=== PATIENT | male | born 1960 | race Caucasian/White ===

== ENCOUNTER 2017-02-06 15:16 | Emergency (ER) | payer BC ==
[2017-02-06] MEDS ORDERED: DUONEB 0.5-3 MG/3 ml Neb IH ONE ×2 (15:25→15:41)
--- NOTE | 2017-02-06 15:38 | ERPHSYRPT ---
- History of Present Illness Time Seen by Provider: 02/06/17 15:33 Source: patient, family Exam Limitations: no limitations Patient Subjective Stated Complaint: PT HERE FOR SOB AFTER PUTTING UP STRAW TODAY,AND DID NOT HAVE INHALER, Triage Nursing Assessment: PT ARRIVED SOB, RESP LABORED, SKIN WARM. SWEATING, Physician History: The patient is a 56-year-old male with family complaining of sudden onset of wheezing and shortness of breath while putting up hay at a farm a few minutes before arrival. The patient has asthma but forgot to bring his inhaler with him. He was very sweaty and had a hard time talking. His past medical history significant for asthma, diabetes, hypertension, and high cholesterol. Timing/Duration: today Activities at Onset: activity Severity of Dyspnea-Max: severe Severity of Dyspnea-Current: severe Possible Cause: frequent episodes Modifying Factors: Improves With: exertion Associated Symptoms: denies symptoms Allergies/Adverse Reactions: No Known Drug Allergies Allergy (Unverified 02/06/17 15:24) Hx Influenza Vaccination/Date Given: No Hx Pneumococcal Vaccination/Date Given: No Immunizations Up to Date: Yes - Review of Systems Constitutional: No Fever, No Chills Eyes: No Symptoms Ears, Nose, & Throat: No Symptoms Respiratory: Dyspnea, Wheezing Cardiac: No Chest Pain, No Edema, No Syncope Abdominal/Gastrointestinal: No Abdominal Pain, No Nausea, No Vomiting, No Diarrhea Genitourinary Symptoms: No Dysuria Musculoskeletal: No Back Pain, No Neck Pain Skin: No Rash Neurological: No Dizziness, No Focal Weakness, No Sensory Changes Psychological: No Symptoms Endocrine: No Symptoms Hematologic/Lymphatic: No Symptoms Immunological/Allergic: No Symptoms All Other Systems: Reviewed and Negative - Past Medical History Pertinent Past Medical History: Yes Cardiac History: High Cholesterol, Hypertension - Past Surgical History Past Surgical History: Yes Gastrointestinal: Cholecystectomy - Social History Smoking Status: Never smoker Exposure to second hand smoke: No Drug Use: none Patient Lives Alone: No - Nursing Vital Signs Nursing Vital Signs: Initial Vital Signs Pulse Rate 86 02/06/17 15:25 Respiratory Rate 30 H 02/06/17 15:25 Blood Pressure 163/107 02/06/17 15:25 O2 Sat by Pulse Oximetry 91 L 02/06/17 15:25 Pain Scale Pain Intensity 0 - Physical Exam General Appearance: moderate distress Eye Exam: PERRL/EOMI Neck Exam: normal inspection, supple Respiratory Exam: diminished breath sounds, wheezing Cardiovascular/Chest Exam: normal heart sounds, regular rate/rhythm Abdominal/Gastrointestinal Exam: soft, No tenderness, No distention, No mass Rectal Exam: not done Extremity Exam: non-tender, normal range of motion, normal inspection, no calf tenderness, no pedal edema Neurologic Exam: alert, oriented x 3, cooperative, decatizer II-XII nml as tested, sensation nml, No motor deficits Skin Exam: normal color, warm, No dry SpO2 Interpretation: normal SpO2: 91 Oxygen Delivery: Room Air - Radiology Exams Chest X-ray Interpretation: Teleradiologist Report, Negative (per Dr Kovacs.) Ordered Tests: Active Orders 24 hr Category Date Time Status CHEST 2 VIEWS (PA AND LAT) Stat Exams 02/06/17 15:43 Completed Respiratory Nebulizer STAT RT 02/06/17 15:42 Completed Medication Summary Discontinued Medications Generic Name Dose Route Start Last Admin Trade Name Freq PRN Reason Stop Dose Admin Albuterol/Ipratropium Confirm 02/06/17 15:25 Duoneb 0.5-3 Mg/3 Ml Neb Administered 02/06/17 15:26 Dose 3 ml IH .STK-MED ONE Albuterol/Ipratropium 3 ml 02/06/17 15:41 02/06/17 15:25 Duoneb 0.5-3 Mg/3 Ml Neb IH 02/06/17 15:42 3 ml STAT ONE Administration Methylprednisolone Sodium Succinate 125 mg 02/06/17 15:41 02/06/17 16:10 Solu-Medrol 125 Mg IM 02/06/17 15:42 125 mg STAT ONE Administration Methylprednisolone Sodium Succinate Confirm 02/06/17 16:09 Solu-Medrol 125 Mg Administered 02/06/17 16:10 Dose 125 mg .ROUTE .STK-MED ONE - Progress Air Movement: good Progress Note: 02/06/17 15:43 After a DuoNeb, the patient is breathing and feeling better. Counseled pt/family regarding: rad results - Departure Time of Disposition: 16:40 Departure Disposition: Home Clinical Impression: Asthma exacerbation Condition: Stable Critical Care Time: No Additional Instructions: You had an exacerbation of asthma this afternoon while working with straw. You were given a DuoNeb treatment and Solu-Medrol 125 mg by IM injection in the ER. Use your inhaler that you have at home as needed. Take prednisone 60 mg daily for 5 days. Follow-up as needed. Prescriptions: Prednisone 10 mg [Deltasone 10 mg] 60 mg PO DAILY #30 tablet
[2017-02-06] MEDS ORDERED: solu-MEDROL 125 MG IM ONE (15:41)
[2017-02-06] MEDS ORDERED: solu-MEDROL 125 MG ONE (16:09)
--- NOTE | 2017-02-06 16:24 | XRAY ---
Indication: Short of breath. Comparison: None PA/lateral chest demonstrates normal heart and lungs. Bony thorax intact.
[2017-02-06 16:53] VITALS: BP 148/96; PULSE 76; O2SAT 96
== END 2017-02-06 16:52 | disposition home or self-care (01) ==
LOC: ED 15:16
DX: J45.901 Unspecified asthma with (acute) exacerbation (principal); X50.0XXA Overexertion from strenuous movement or load, initial encounter; Y92.73 Farm field as the place of occurrence of the external cause
CPT/HCPCS: 71020; 94640; 96372; 99284; J2930; A9270-GY